=== PATIENT | female | born 1945 | race Native Hawaiian/Other Pacific Islander ===

== ENCOUNTER → 2019-03-15 | Outpatient (CLI) | payer MEDICARE, BC | END | disposition home or self-care (01) | LOC: LABWHC1 12:49 | PROVIDERS: ATTEND Internal Medicine Endocrinology, Diabetes & Metabolism | DX: E05.90 Thyrotoxicosis, unspecified without thyrotoxic crisis or storm (principal) | CPT/HCPCS: 36415; 84439; 84443; 84445; 84480 ==

== ENCOUNTER → 2019-03-21 | Outpatient (CLI) | payer MEDICARE, BC ==
--- NOTE | 2019-03-22 09:59 | NM ---
EXAMINATION TYPE: NM thyroid image w uptake DATE OF EXAM: 03/22/2019 COMPARISON: NONE HISTORY: Subclinical hyperthyroidism TECHNIQUE: Thyroid iodine uptake is calculated and images performed after the oral administration of 310 uCi 1-123 Capsule. FINDINGS: There is abnormal distribution of activity throughout the gland. Abnormal low radio pharma ceutical trapping noted in the mid to lower pole of the right lobe of the gland is compatible with co ld nodule, mild heterogeneity noted within the left lobe. The 4 hour iodine uptake is calculated at 2 8.3% (normal range 8-14%). The 24-hour iodine uptake is calculated at 60.3% (normal range 15-35%). IMPRESSION: Cold nodule right lobe of the gland. Abnormal elevation of the 4 hour and 24-hour iodine uptake as described.
== END | disposition home or self-care (01) ==
LOC: RADNMMAIN 08:05
PROVIDERS: ATTEND Internal Medicine Endocrinology, Diabetes & Metabolism
DX: E05.90 Thyrotoxicosis, unspecified without thyrotoxic crisis or storm (principal)
CPT/HCPCS: 78014; A9516